=== PATIENT | male | born 1925 | race Caucasian/White ===

== ENCOUNTER 2016-08-22 11:07 | Inpatient (IN) ==
[2016-08-22] MEDS ORDERED: SODIUM CHLORIDE 0.9% 500 ML IV STA (11:39)
--- NOTE | 2016-08-22 11:42 | Emergency Department Note ---
Arrival - Arrival Chief Complaint: Weakness Stated Complaint: UTI ED Nursing Triage Note: C/o generalized weakness-onset yesterday. Son states that he has been being treated for a UTI for the past month and that PO meds aren't helping. Mode of Arrival: Wheelchair Limitations: No Limitations Source: Patient, Family, RN Notes Reviewed Time Seen by Provider: 08/22/16 11:25 - History of Present Illness HPI Narrative: Patient is an 89-year-old white male with a history of generalized weakness. The patient's been treated for the last month for UTI with Cipro. Patient has had some dysuria. Over the last 2 days the patient has had a progressive deterioration in his ability to function and perform his ADLs. According to the family they had to dress the patient this morning and this is usually not his status. His baseline is usually ambulating independently and living independently. Patient has not experienced any chills or fever. He has had some nausea and is not eating well. Onset (ago): day(s) (2) Allergies/Adverse Reactions: Allergies Allergy/AdvReac Type Severity Reaction Status Date / Time ciprofloxacin [From Cipro] Allergy Unknown/Unable Verified 08/22/16 11:19 to obtain Home Medications: Home Medications Medication Instructions Recorded Confirmed Type Carvedilol 12.5 mg PO BID 08/22/16 08/22/16 History Donepezil HCl 5 mg PO DAILY 08/22/16 08/22/16 History Doxazosin Mesylate 2 mg PO DAILY 08/22/16 08/22/16 History Meloxicam 15 mg PO DAILY 08/22/16 08/22/16 History Mirtazapine 15 mg PO BEDTIME 08/22/16 08/22/16 History Simvastatin 40 mg PO BEDTIME 08/22/16 08/22/16 History Tolterodine LA [Detrol LA] 4 mg PO DAILY 08/22/16 08/22/16 History Review of System - Review of System 12 point system: reviewed and no additional remarkable complaints except as stated - Review of System Constitutional: Absent: chills, fever Respiratory: Present: cough. Absent: respiratory distress, wheezing Cardiovascular: Absent: chest pain Gastrointestinal: Present: nausea. Absent: abdominal pain, vomiting Skin: Absent: rash Neurological: Present: weakness, abnormal gait. Absent: numbness, paresthesias , confusion Medical,Surgical,& Family Hx - Medical History Cardio: History of: CAD, Hypertension Endocrine: History of: Dyslipidemia Genitourinary: History of: Prostate Problems (prostate cancer) - Surgical History Cardiac Surgeries: Sugical HX of: Cardiac Surgery (CABG) - Social History Smoking Status: Never smoker Frequency of Alcohol Use: None Type of Drug Use: None Exam Vital Signs: Vital Signs Temperature 99.7 F H 08/22/16 12:04 Pulse Rate 61 08/22/16 12:04 Respiratory Rate 18 08/22/16 12:06 Blood Pressure 124/48 08/22/16 12:04 O2 Sat by Pulse Oximetry 96 08/22/16 11:13 GENERAL: This is a chronically and acutely ill-appearing white male in no apparent distress. VITAL SIGNS: Reviewed HEENT: Head is atraumatic and normocephalic. Pupils are equal round react to light. Extraocular movements are intact. Oropharynx is benign with slightly dry mucous membranes. NECK: Neck is soft and supple without tenderness. There are no masses. There is no lymphadenopathy. LUNGS: Lungs are clear to auscultation. Chest rises symmetrically. There is no chest wall tenderness. CV: Heart is regular rate and rhythm 2/6 systolic ejection murmur loudest at the left sternal border but also heard at the right sternal border. ABDOMEN: Abdomen is soft, nontender to palpation. There are no abdominal abnormal masses palpated. There is no organomegaly. Bowel sounds are present and active. SKIN: Skin is warm and dry. No rash. EXTREMITIES: Patient has full range of motion without tenderness. There is no pedal edema. NEUROLOGIC: Awake, alert, and oriented to person and situation. Cranial nerves II through XII are grossly intact. Motor is 5 over 5 in all extremities bilaterally. Deep tendon reflexes are 2+ and bilaterally equal. Course - Consultations Consultation #1: Discussed with hospitalist. Patient will be admitted to their service. Time: 13:54 Results - Labs CBC & BMP: 08/22/16 11:28 08/22/16 11:28 Lab Results: I have reviewed the patients labs Labs: Laboratory Tests 08/22/16 11:28 Iron 11 L TIBC 229 L % Saturation 4.8 L Ferritin 22.7 L - Diagnostic Findings Procedure: Chest x-ray: image reviewed by me (Old median sternotomy, no infiltrates, no pleural effusions.), CT: image reviewed by me (CT head: Cerebral atrophy, no acute intracranial lesions or hemorrhages.) Disposition Clinical Impression: Generalized weakness, UTI (urinary tract infection), Iron deficiency anemia Case discussed with: patient, patient's family Condition: Stable Time of Disposition: 13:54
[2016-08-22 11:59] LABS: Basophils % 0.1 % (0.0-0.8); Eosinophils % 0.2 % (0.00-10.9); Hematocrit 26.8 VOL% (42.0-52.0); Hemoglobin 8.8 GM/DL (14.0-18.0); Immature Granulocytes % 0.5 %; Immature Granulocytes Absolute 0.04 #; Lymphocytes # 0.6 10*3/uL (1.4-4.0); Lymphocytes % 7.8 % (21.2-54.2); Mean Corpuscular HGB Conc 32.8 GM/DL (32-36); Mean Corpuscular Hemoglobin 30 PG (27-34); Mean Corpuscular Volume 91.2 FL (87-102); Mean Platelet Volume 11.1 FL (9.6-12.0); Monocytes % 12.1 % (1.7-12.7); Neutrophils # 6.4 10*3/uL (1.4-7.4); Neutrophils % 79.3 % (38.7-73.9); Platelet Count 148 T/CUMM (130-400); Red Blood Count 2.94 MC/CUMM (3.8-5.5); Red Cell Distribution Width 13.8 % (9.3-17.3); White Blood Count 8.1 T/CUMM (4-12)
--- NOTE | 2016-08-22 12:15 | CT Report ---
CT head/brain wo con Indication: Generalized weakness Comparison: None Technique: Multiple axial tomographic images of the brain were obtained without the use of intravenous contrast. Findings: Midline structures are nondisplaced. Marked global volume loss present. No acute intracranial hemorrhage. Moderate periventricular and subcortical hypoattenuation noted which is nonspecific but consistent with chronic microvascular ischemic change. Demyelinating process and vasculitis less likely considerations. Old lacunar infarcts involving the right basal ganglia. Atherosclerotic calcifications demonstrated. The visualized paranasal sinuses and bilateral mastoid air cells are essentially clear. IMPRESSION: No acute intracranial abnormality demonstrated. Probable chronic microvascular ischemic change and volume loss. Old lacunar infarcts of right basal ganglia. The CT exam was performed using one or more of the following dose reduction techniques: Automated exposure control, adjustment of the mA and/or kV according to patient size, or use of iterative reconstruction technique. PROCEDURE INTERPRETED AT [facility] DEPARTMENT OF RADIOLOGY Final Report Signed by: Dr William Serra
[2016-08-22 12:22] LABS: Band Neutrophils 4 % (0-10); Lymphocytes 2 % (20-55); Segmented Neutrophils 84 % (50-85); Total Cells Counted 100
[2016-08-22 12:23] LABS: Hypochromasia Slight; Platelet Estimate Adequate
--- NOTE | 2016-08-22 12:23 | XRay Report ---
XR chest 1V portable Indication: Cough Comparison: Chest x-ray dated November 03, 2008 Technique: Single frontal view of the chest. Findings: Mild cardiomegaly status post sternotomy. Chronic change of the lungs without focal consolidation, pleural effusion, or pneumothorax. Visualized osseous and surrounding soft tissue structures appear grossly unchanged. IMPRESSION: Mild cardiomegaly without jerrod pulmonary edema. PROCEDURE INTERPRETED AT [facility] DEPARTMENT OF RADIOLOGY Final Report Signed by: Dr Willaim Serra
[2016-08-22 12:32] LABS: Albumin 2.6 G/DL (3.4-5.0); Bilirubin,Total 0.9 MG/DL (0.2-1.0); Calcium 8.1 MG/DL (8.5-10.1); Osmolality,Calculated 292.1 MOS/KG (273-304); Total Protein 5.3 G/DL (6.4-8.3)
[2016-08-22 12:59] LABS: % Iron Saturation 4.8 % (18-50); Ferritin 22.7 ng/ml (26-388)
[2016-08-22 13:44] LABS: Folate > 24.0 NG/ML (5.4-24.0); Vitamin B12 840 PG/ML (211-911)
[2016-08-22] MEDS ORDERED: SODIUM CHLORIDE 0.9% 1,000 ML IV STA (14:25)
[2016-08-22] MEDS ORDERED: LACTULOSE 20 GM/30 ML UDCUP PO PRN (14:46)
[2016-08-22] MEDS ORDERED: ONDANSETRON 4 MG/2 ML VIAL IV PRN (14:46)
[2016-08-22] MEDS ORDERED: ACETAMINOPHEN 325 MG TABLET PO PRN (14:46)
--- NOTE | 2016-08-22 14:59 | Hospitalist History & Physical ---
<Luis Logan - Last Filed: 08/22/16 15:18> Assessment and Plan - Time spent with patient Time spent with patient: Greater than 30 minutes (1) Iron deficiency anemia Status: Acute Assessment and plan: Iron 11 TIBC 229 ferritin 20.7. Start patient on supplemental iron. Type and cross for possible transfusion if necessary. IV hydration. Current Visit: Yes (2) UTI (urinary tract infection) Status: Acute Assessment and plan: Patient had recent UTI infection. Prescription for ciprofloxacin given per Dr. Newsome. Patient may have an allergy to ciprofloxacin. Will switch antibiotics and continue coverage once urinalysis results return confirming UTI. WBCs 8.1 Current Visit: Yes (3) Generalized weakness Status: Acute Current Visit: Yes (4) Hypertension Status: Acute Assessment and plan: Well-controlled on home meds. Continue home meds Current Visit: Yes History of Present Illness Chief complaint: Anemia, altered mental status History of present illness: Mr. Parisi is a 89 year old white male with a past medical history significant for hypertension, history of CVA, history of UTI, prostate cancer, quadruple bypass who presents to the ED today with complaints of altered mental status with onset last night. The patient is accompanied by his son who noted that the patient, who is quite active at baseline, started to deteriorate last night and apparently needed assistance and clothing himself this morning. Patient does have a recent history of UTI for which he was treated for with ciprofloxacin. He was on a 7 day regimen and still has 3 days left to complete. Patient's son notes that the patient started to behave differently on last night and seemed more confused this morning. Patient is followed by Dr. Newsome for primary care, Dr. Do for cardiology, and Dr. George for urology. Patient has no known allergies, however, this recent change in mentation is suspicious for an acquired allergy to fluoroquinolones. Patient denies any pain at this time. No headache, nausea vomiting, blood in sputum, hematemesis, melena. Urinalysis is pending. On admission, the patient's lab work is remarkable for H&H 8.8 and 26.8, BUN 35, creatinine 1.40, glucose 133, iron 11, TIBC 229, ferritin 22.7, B12 840, folate greater than 24.0. Case been discussed with Dr. Griffiths, ER physician, and Dr. Casey, admitting physician, and the patient will be admitted to the hospital medicine service for further evaluation and treatment. Medications have been reviewed and reconciled. Patient is a full code. Home Medications Medication Instructions Recorded Confirmed Type Carvedilol 12.5 mg PO BID 08/22/16 08/22/16 History Donepezil HCl 5 mg PO DAILY 08/22/16 08/22/16 History Doxazosin Mesylate 2 mg PO DAILY 08/22/16 08/22/16 History Meloxicam 15 mg PO DAILY 08/22/16 08/22/16 History Mirtazapine 15 mg PO BEDTIME 08/22/16 08/22/16 History Simvastatin 40 mg PO BEDTIME 08/22/16 08/22/16 History Tolterodine LA [Detrol LA] 4 mg PO DAILY 08/22/16 08/22/16 History Allergies Allergy/AdvReac Type Severity Reaction Status Date / Time ciprofloxacin [From Cipro] Allergy Unknown/Unable Verified 08/22/16 11:19 to obtain Medical,Surgical,& Family Hx - Medical History Cardio: History of: CAD, Hypertension Endocrine: History of: Dyslipidemia Genitourinary: History of: Prostate Problems (prostate cancer) - Surgical History Cardiac Surgeries: Sugical HX of: Cardiac Surgery (CABG) - Family History Family History: Reports;: Family Heart Disease, Family Hypertension - Social History Smoking Status: Never smoker Frequency of Alcohol Use: None Type of Drug Use: None Marital Status: Lives With:: Alone Functional capacity: independent ambulation - Constitutional Constitutional: Present: weakness. Absent: fever(s), headache(s) - EENT Eyes: Absent: blurry vision Ears: Absent: decreased hearing - Cardiovascular Cardiovascular: Present: dyspnea. Absent: chest pain at rest, edema - Respiratory Respiratory: Absent: cough, hemoptysis, pain on inspiration - Gastrointestinal Gastrointestinal: Absent: abdominal pain, diarrhea, melena, nausea - Genitourinary Genitourinary: Absent: difficulty urinating - Musculoskeletal Musculoskeletal: Absent: arthralgias, back pain, muscle weakness - Neurological Neurological: Present: confusion - Psychiatric Psychiatric: Absent: anxiety, depression - Endocrine Endocrine: Present: fatigue - Hematologic/Lymphatic Hematologic/Lymphatic: Present: easy bleeding, easy bruising Exam - Constitutional Vitals: Period Temp Pulse Resp BP Sys/Chisholm Pulse Ox Last 24 Hr 99.7 F-99.7 F 61-61 18-18 124-124/48-48 96 Exam: General appearance: normal weight, no acute distress - Head Head exam: Present: normocephalic, atraumatic - Eye Eye exam: Present: EOMI. Absent: conjunctival injection, nystagmus Pupils: Present: DEEPAK, normal accommodation - ENT ENT exam: Present: normal exam, normal external ear exam - Neck Neck exam: Present: normal inspection. Absent: lymphadenopathy, tenderness, thyromegaly - Respiratory Respiratory exam: Present: clear to auscultation bilaterally. Absent: rales, rhonchi, wheezes - Cardiovascular Cardiovascular exam: Present: regular rate and rhythm. Absent: carotid bruit, gallop, rubs - GI/Abdominal GI/Abdominal exam: Present: normal bowel sounds. Absent: ascites, distended, mass - Extremities Exam Extremities exam: Present: normal inspection, normal capillary refill. Absent: edema - Back Exam Back exam: Absent: CVA tenderness (L), CVA tenderness (R) - Neurological Exam Neurological exam: Present: alert, oriented X3, cranial nerves II through XII intact, reflexes appropriate - Psychiatric Psychiatric exam: Present: normal affect, normal mood - Skin Skin exam: Present: normal color, warm, dry Results - Labs CBC & BMP: 08/22/16 11:28 08/22/16 11:28 Lab Results: I have reviewed the past 24 hour labs - EKG EKG results: interpreted by ERMD - Diagnostic Findings Procedure: Chest x-ray: image reviewed by me, report reviewed by me <Shiva Casey - Last Filed: 08/22/16 16:14> Assessment and Plan - Time spent with patient Time spent with patient: Greater than 30 minutes (1) Acute encephalopathy Status: Acute Assessment and plan: Addendum: I reviewed pt's lab results today. I reviewed pt's CXR and CT head today. I discussed with pt's children, our PA, and staff antisubmarine officer in regarding pt's clinical status today. I saw and examined pt in his room today. I agree with history, physical,assessment, and plan listed as above by our PA, Kailyn Doreen. In addition, AMS could be due to side effect from PO cipro (pt took his 7th day cipro today) vs UTI. Will do UC BC. IV rocephin 1g for UTI. May need cath to get urine sample. Consult ID in am. Current Visit: Yes (2) Generalized weakness Status: Acute Assessment and plan: Monitor. Consult PT in am. Current Visit: Yes (3) UTI (urinary tract infection) Status: Acute Assessment and plan: Change to IV rocephin. Consult ID in am. Do bc and uc. Current Visit: Yes (4) Iron deficiency anemia Status: Acute Current Visit: Yes (5) Hypertension Status: Acute Current Visit: Yes Exam - Constitutional Vitals: Period Temp Pulse Resp BP Sys/Chisholm Pulse Ox Last 24 Hr 99.7 F-99.7 F 50-61 17-19 114-131/46-58 96-99 Results - Labs CBC & BMP: 08/22/16 11:28 08/22/16 11:28
[2016-08-22 16:03] LABS: Risk Ratio 1.81; VLDL CHOLESTEROL 7.2 MG/DL
[2016-08-22] MEDS: SODIUM CHLORIDE 0.9% 1,000 ML IV SCH (16:45)
[2016-08-22] MEDS ORDERED: IRON SUCROSE 200 MG in SODIUM CHLORIDE 0.9% 100 ML IV ONE (17:00)
[2016-08-22] MEDS ORDERED: cefTRIAXone 1,000 MG in SODIUM CHLORIDE 0.9% 100 ML IV SCH (18:00)
[2016-08-22 21:28] LABS: Apearance,Urine CLOUDY (Clear); Bilirubin,Urine Negative (Negative); Blood, Urine Large mg/dL (Negative); Glucose,Urine (UA) Negative (Negative); Ketones,Urine Negative (Negative); Mucus,Urine Occasional /LPF (Occasional); Nitrite,Urine Negative (Negative); Protein,Urine 100 MG/DL; RBC,Urine 632 /HPF (0-4); Urine Color Yellow (Yellow); Urine Specific Gravity 1.014 (1.001-1.035); Urine Urobilinogen < 2.0 EU/DL (0.2-1.0); WBC,Urine 192 /HPF (0-6)
[2016-08-22] MEDS: MIRTAZAPINE 15 MG TABLET PO SCH (22:15)
[2016-08-22] MEDS: SIMVASTATIN 40 MG TABLET PO SCH (22:15)
[2016-08-22] MEDS: CARVEDILOL 12.5 MG TABLET PO SCH (22:15)
[2016-08-22] MEDS: cefTRIAXone 1,000 MG in SODIUM CHLORIDE 0.9% 100 ML IV SCH (23:22)
[2016-08-23] MEDS: SODIUM CHLORIDE 0.9% 1,000 ML IV SCH ×2 (04:53→20:48)
[2016-08-23 07:14] LABS: Calcium 7.8 MG/DL (8.5-10.1); Osmolality,Calculated 295.6 MOS/KG (273-304); Potassium 3.8 MMOL/L (3.5-5.1)
[2016-08-23 08:53] LABS: Basophils % 0.3 % (0.0-0.8); Eosinophils # 0.1 10*3/uL (0.0-0.87); Eosinophils % 1.4 % (0.00-10.9); Hematocrit 26.5 VOL% (42.0-52.0); Hemoglobin 8.6 GM/DL (14.0-18.0); Immature Granulocytes % 0.5 %; Immature Granulocytes Absolute 0.03 #; Lymphocytes # 0.8 10*3/uL (1.4-4.0); Lymphocytes % 12.7 % (21.2-54.2); Mean Corpuscular HGB Conc 32.5 GM/DL (32-36); Mean Corpuscular Hemoglobin 30 PG (27-34); Mean Corpuscular Volume 91.7 FL (87-102); Mean Platelet Volume 11.5 FL (9.6-12.0); Monocytes # 0.7 10*3/uL (0.11-0.8); Monocytes % 11.3 % (1.7-12.7); Neutrophils # 4.8 10*3/uL (1.4-7.4); Neutrophils % 73.8 % (38.7-73.9); Platelet Count 142 T/CUMM (130-400); Red Blood Count 2.89 MC/CUMM (3.8-5.5); Red Cell Distribution Width 13.8 % (9.3-17.3); White Blood Count 6.5 T/CUMM (4-12)
[2016-08-23 10:21] LABS: Burr Cells 1+; Hypochromasia 1+; Microcytosis Slight
[2016-08-23] MEDS: TOLTERODINE LA 4 MG CAPSULE PO SCH (10:36)
[2016-08-23] MEDS: DOCUSATE SODIUM 100 MG CAPSULE PO PRN (10:36)
[2016-08-23] MEDS: DOXAZOSIN 1 MG TABLET PO SCH (10:37)
[2016-08-23] MEDS: PANTOPRAZOLE 40 MG TABLET PO SCH (10:37)
[2016-08-23] MEDS: CARVEDILOL 12.5 MG TABLET PO SCH ×2 (10:37→22:01)
[2016-08-23] MEDS: DONEPEZIL 5 MG TABLET PO SCH (10:37)
--- NOTE | 2016-08-23 12:36 | Hospitalist Progress Note ---
Assessment and Plan (1) UTI (urinary tract infection) Status: Acute Assessment and plan: Continue rocephin F/u urine culture Current Visit: Yes (2) Hypertension Status: Acute Assessment and plan: Continue home medications Current Visit: Yes (3) Acute encephalopathy Status: Acute Assessment and plan: Most likely secondary to infection Better today Current Visit: Yes Hospitalist: Subjective Interval history: Overnight, patient's family reports confusion overnight. A little better this morning. Report good appetite. Exam - Constitutional Vitals: Period Temp Pulse Resp BP Sys/Chisholm Pulse Ox Last 24 Hr 98 F-99.2 F 49-100 16-20 102-183/46-90 93-100 General appearance: normal weight - Head Head exam: Present: normocephalic, atraumatic - Eye Eye exam: Present: EOMI Pupils: Present: DEEPAK - ENT ENT exam: Present: normal exam - Neck Neck exam: Present: normal inspection - Respiratory Respiratory exam: Present: clear to auscultation bilaterally. Absent: wheezes - Cardiovascular Cardiovascular exam: Present: regular rate and rhythm - GI/Abdominal GI/Abdominal exam: Present: normal bowel sounds, soft. Absent: tenderness, rebound - Extremities Exam Extremities exam: Present: normal inspection - Back Exam Back exam: Present: normal inspection - Neurological Exam Neurological exam: Present: alert, oriented X3 - Psychiatric Psychiatric exam: Present: normal affect, normal mood - Skin Skin exam: Present: warm, intact Results - Labs CBC & BMP: 08/23/16 06:03 08/23/16 06:03
[2016-08-23] MEDS: cefTRIAXone 1,000 MG in SODIUM CHLORIDE 0.9% 100 ML IV SCH (19:11)
[2016-08-23] MEDS: SIMVASTATIN 40 MG TABLET PO SCH (22:02)
[2016-08-23] MEDS: MIRTAZAPINE 15 MG TABLET PO SCH (22:02)
[2016-08-24 05:17] LABS: Basophils % 0.3 % (0.0-0.8); Eosinophils # 0.2 10*3/uL (0.0-0.87); Eosinophils % 3.1 % (0.00-10.9); Hematocrit 28.3 VOL% (42.0-52.0); Hemoglobin 9.1 GM/DL (14.0-18.0); Immature Granulocytes % 0.3 %; Immature Granulocytes Absolute 0.02 #; Lymphocytes # 0.9 10*3/uL (1.4-4.0); Lymphocytes % 14.7 % (21.2-54.2); Mean Corpuscular HGB Conc 32.2 GM/DL (32-36); Mean Corpuscular Hemoglobin 29 PG (27-34); Mean Corpuscular Volume 90.7 FL (87-102); Monocytes # 0.7 10*3/uL (0.11-0.8); Monocytes % 11.7 % (1.7-12.7); Neutrophils % 69.9 % (38.7-73.9); Platelet Count 167 T/CUMM (130-400); Red Blood Count 3.12 MC/CUMM (3.8-5.5); Red Cell Distribution Width 14.2 % (9.3-17.3); White Blood Count 5.8 T/CUMM (4-12)
[2016-08-24 05:43] LABS: Calcium 7.6 MG/DL (8.5-10.1); Magnesium 1.7 MG/DL (1.8-2.4); Potassium 3.8 MMOL/L (3.5-5.1)
[2016-08-24 06:00] LABS: Band Neutrophils 3 % (0-10); Eosinophils 2 % (0-10); Lymphocytes 16 % (20-55); Metamyelocytes 1 %; Segmented Neutrophils 69 % (50-85); Total Cells Counted 100
[2016-08-24 06:01] LABS: Platelet Estimate Adequate
[2016-08-24] MEDS: TOLTERODINE LA 4 MG CAPSULE PO SCH (09:49)
[2016-08-24] MEDS: DOXAZOSIN 1 MG TABLET PO SCH (09:50)
[2016-08-24] MEDS: DOCUSATE SODIUM 100 MG CAPSULE PO PRN (09:51)
[2016-08-24] MEDS: CARVEDILOL 12.5 MG TABLET PO SCH ×2 (09:52→21:03)
[2016-08-24] MEDS: PANTOPRAZOLE 40 MG TABLET PO SCH (09:53)
[2016-08-24] MEDS: DONEPEZIL 5 MG TABLET PO SCH (09:55)
[2016-08-24] MEDS ORDERED: traZODone 50 MG TABLET PO PRN (12:07)
--- NOTE | 2016-08-24 12:54 | Hospitalist Progress Note ---
Assessment and Plan (1) UTI (urinary tract infection) Status: Acute Assessment and plan: Continue rocephin Urine culture with no growth so far Current Visit: Yes (2) Hypertension Status: Acute Assessment and plan: Continue home medications Current Visit: Yes (3) Acute encephalopathy Status: Acute Assessment and plan: Most likely secondary to infection Better today Current Visit: Yes Hospitalist: Subjective Interval history: Per daughter, overnight patient was oriented but complained of back pain. Relieved with pain medications. Exam - Constitutional Vitals: Period Temp Pulse Resp BP Sys/Chisholm Pulse Ox Last 24 Hr 98.2 F-98.8 F 58-63 18-20 117-128/51-62 97-98 General appearance: normal weight - Head Head exam: Present: normocephalic, atraumatic - Eye Eye exam: Present: EOMI Pupils: Present: DEEPAK - ENT ENT exam: Present: normal exam - Neck Neck exam: Present: normal inspection - Respiratory Respiratory exam: Present: clear to auscultation bilaterally. Absent: rhonchi, wheezes - Cardiovascular Cardiovascular exam: Present: regular rate and rhythm - GI/Abdominal GI/Abdominal exam: Present: normal bowel sounds, soft. Absent: tenderness, rebound - Extremities Exam Extremities exam: Present: normal inspection - Back Exam Back exam: Present: normal inspection - Neurological Exam Neurological exam: Present: alert - Psychiatric Psychiatric exam: Present: normal affect, normal mood - Skin Skin exam: Present: warm, intact Results - Labs CBC & BMP: 08/24/16 05:06 08/24/16 05:06
[2016-08-24] MEDS: SODIUM CHLORIDE 0.9% 1,000 ML IV SCH ×2 (19:55→21:56)
[2016-08-24] MEDS: cefTRIAXone 1,000 MG in SODIUM CHLORIDE 0.9% 100 ML IV SCH (19:55)
--- NOTE | 2016-08-24 21:01 | ECHO Report ---
Domenico Parisi Exam Date: 08/23/2016 09:53 Referring Physician: Technologist: Indira Paul LRMATT Age: 89 Ht (in): 68 Wt (lb): 120 Gender: M Exam Location: [facility] Echo Indications: acute encephalopathy, weakness, UTI, anemia, HTN BP: 135 / 68 HR: 57 Rhythm: Sinus Technical Quality: Good IMPRESSIONS Left ventricular ejection fraction is estimated at 55-60 %. Mild concentric left ventricular hypertrophy with diastolic dysfunction. Mild RV enlargement Mild right atrial enlargement Moderately increased left atrial size. Mild mitral valve sclerosis. 2+ mitral valve regurgitation. Mild aortic valve sclerosis without stenosis. Trace to mild aortic valve regurgitation. [id number] tricuspid valve regurgitation. Tricuspid regurgitation velocities suggest a PAP of 47 mmHg. Mild pulmonary valve regurgitation. MEASUREMENTS (Male / Female) Normal Values 2D ECHO LV Diastolic Diameter PLAX 4.7 cm 4.2 - 5.9 / 3.9 - 5.3 cm LV Systolic Diameter PLAX 2.7 cm LV Fractional Shortening PLAX 42.2 % IVS Diastolic Thickness 1.1 cm 0.6 - 1.0 / 0.6 - 0.9 cm LVPW Diastolic Thickness 1.1 cm 0.6 - 1.0 / 0.6 - 0.9 cm RV Internal Dim ED PLAX 2.5 cm Aortic Root Diameter 3.0 cm LA Systolic Diameter LX 5.4 cm 3.0 - 4.0 / 2.7 - 3.8 cm DOPPLER TR Peak Velocity 305.0 cm/s TR Peak Gradient 37.2 mmHg FINDINGS Left Ventricle Mild concentric left ventricular hypertrophy with diastolic dysfunction. Left ventricular ejection fraction is estimated at 55-60 %. Right Ventricle Mild RV enlargement Right Atrium Mild right atrial enlargement Left Atrium Moderately increased left atrial size. Mitral Valve Mild mitral valve sclerosis. 2+ mitral valve regurgitation. Aortic Valve Mild aortic valve sclerosis without stenosis.trace to mild aortic valve regurgitation. Tricuspid Valve Morphologically normal tricuspid valve. [id number] tricuspid valve regurgitation. Tricuspid regurgitation velocities suggest a PAP of 47 mmHg. Pulmonic Valve Morphologically normal pulmonic valve. Mild pulmonary valve regurgitation. Pericardium No pericardial effusion. Aorta Normal size aortic root and proximal ascending aorta. Jaswinder Do MD (Electronically Signed) Final Date: 24 August 2016 21:00
[2016-08-24] MEDS: SIMVASTATIN 40 MG TABLET PO SCH (21:03)
[2016-08-24] MEDS: MIRTAZAPINE 15 MG TABLET PO SCH (21:03)
[2016-08-24] MEDS: DOXYCYCLINE HYCLATE 100 MG CAPSULE PO SCH (21:57)
[2016-08-25 05:04] LABS: Basophils % 0.5 % (0.0-0.8); Eosinophils # 0.2 10*3/uL (0.0-0.87); Eosinophils % 4.1 % (0.00-10.9); Hematocrit 24.7 VOL% (42.0-52.0); Hemoglobin 8.2 GM/DL (14.0-18.0); Immature Granulocytes % 0.2 %; Immature Granulocytes Absolute 0.01 #; Lymphocytes # 0.8 10*3/uL (1.4-4.0); Lymphocytes % 19.3 % (21.2-54.2); Mean Corpuscular HGB Conc 33.2 GM/DL (32-36); Mean Corpuscular Hemoglobin 30 PG (27-34); Mean Corpuscular Volume 90.8 FL (87-102); Mean Platelet Volume 11.2 FL (9.6-12.0); Monocytes # 0.6 10*3/uL (0.11-0.8); Neutrophils # 2.6 10*3/uL (1.4-7.4); Neutrophils % 60.9 % (38.7-73.9); Platelet Count 155 T/CUMM (130-400); Red Blood Count 2.72 MC/CUMM (3.8-5.5); White Blood Count 4.2 T/CUMM (4-12)
[2016-08-25 05:29] LABS: Calcium 7.5 MG/DL (8.5-10.1); Magnesium 1.7 MG/DL (1.8-2.4); Potassium 3.8 MMOL/L (3.5-5.1)
[2016-08-25 05:53] LABS: Hypochromasia 1+; Ovalocytes Slight; Platelet Estimate Normal
[2016-08-25 05:54] LABS: Burr Cells Slight; Microcytosis Slight
[2016-08-25] MEDS: DOXYCYCLINE HYCLATE 100 MG CAPSULE PO SCH (09:16)
[2016-08-25] MEDS: PANTOPRAZOLE 40 MG TABLET PO SCH (09:16)
[2016-08-25] MEDS: DONEPEZIL 5 MG TABLET PO SCH (09:16)
[2016-08-25] MEDS: DOCUSATE SODIUM 100 MG CAPSULE PO PRN (09:16)
[2016-08-25] MEDS: DOXAZOSIN 1 MG TABLET PO SCH (09:16)
[2016-08-25] MEDS: TOLTERODINE LA 4 MG CAPSULE PO SCH (09:16)
[2016-08-25] MEDS: CARVEDILOL 12.5 MG TABLET PO SCH ×2 (09:16→21:11)
[2016-08-25] MEDS ORDERED: MAGNESIUM SULF RIDER 4 GM in PREMIX 1 EACH IV PRN (11:20)
[2016-08-25] MEDS ORDERED: MAGNESIUM SULF RIDER 2 GM in PREMIX 1 EACH IV PRN (11:20)
--- NOTE | 2016-08-25 12:23 | Hospitalist Progress Note ---
Assessment and Plan (1) UTI (urinary tract infection) Status: Acute Assessment and plan: This is questionable Moderate leukocytes on UA but urine culture with no growth Family reports recurrent uti's for over a month being treated by his pcp The family is requesting further evaluation, consulting ID Current Visit: Yes (2) Hypertension Status: Acute Assessment and plan: Continue home medications Current Visit: Yes (3) Acute encephalopathy Status: Acute Assessment and plan: Initially thought to be due to uti, but urine culture with no growth CT head without acute process B12 ok Will check RPR Consulting neurology for assistance Patient is better than he was on admission, oriented to person and place today Believe that delirium due to is also complicating this picture Current Visit: Yes Hospitalist: Subjective Interval history: There is a different daughter in the patient's room today. She reports that the patient was alert yesterday, did not sleep much overnight. She reports that the patient is more confused this morning. The patient is asleep, but easily aroused. He is oriented to person, place and time is better (2016). The daughter reports that the patient is not close to being himself. She reports that the patient for along time has been occasionally hearing things, such as sirens or dogs fighting, that no one else hears. She also reports that he had an episode of acute confusion some time ago due to a uti. Consulted ID for assistance. Exam - Constitutional Vitals: Period Temp Pulse Resp BP Sys/Chisholm Pulse Ox Last 24 Hr 97.9 F-99.2 F 55-76 14-20 137-152/62-70 92-100 General appearance: normal weight - Head Head exam: Present: normocephalic, atraumatic - Eye Eye exam: Present: EOMI Pupils: Present: DEEPAK - ENT ENT exam: Present: normal exam - Neck Neck exam: Present: normal inspection - Respiratory Respiratory exam: Present: clear to auscultation bilaterally. Absent: rhonchi, wheezes - Cardiovascular Cardiovascular exam: Present: regular rate and rhythm - GI/Abdominal GI/Abdominal exam: Present: normal bowel sounds, soft. Absent: tenderness, rebound - Extremities Exam Extremities exam: Present: normal inspection - Back Exam Back exam: Present: normal inspection - Neurological Exam Neurological exam: Present: alert, oriented X3 - Psychiatric Psychiatric exam: Present: normal affect, normal mood - Skin Skin exam: Present: warm, intact Results - Labs CBC & BMP: 08/25/16 02:54 08/25/16 02:54
--- NOTE | 2016-08-25 13:56 | Infectious Disease Consult ---
Assessment and Plan (1) Recurrent UTI Status: Acute Assessment and plan: Patient has history of prostate cancer with radiation therapy and chemotherapy. Recurring UTIs may be related to his prostate issues. Currently no evidence of urinary tract infection. Recommendations: 1. Recommend Hiprex to try to decrease frequency of recurring urinary tract infections 2. Discontinue doxycycline Thank you very much for the consult. Call again as needed. Discussed with Dr. Stokes Discussed with patient's daughter at bedside Current Visit: Yes (2) Acute encephalopathy Status: Acute Assessment and plan: This would not be infectious as we have no evidence of infection during current admission. Could be other causes such as medication induced versus acute worsening of dementia. Current Visit: Yes (3) Hypertension Status: Acute Current Visit: Yes History of Present Illness Chief complaint: Recurrent urinary tract infections History of present illness: History obtained from patient's daughters patient is confused. Mr. Parisi is a 89 year old male who apparently has been having recurrent urinary tract infections for the past month according to his daughter. He recently has been on ciprofloxacin for over a week. The patient's diagnosis of UTIs are made when the home health nurse checks his urine and finds white blood cells. No report of symptoms in patients such as abdominal pain and there has been no fever. He was brought to hospital on this occasion because of confusion. Daughter was concerned that he may have been having a reaction to ciprofloxacin which she has been on. Home Medications Medication Instructions Recorded Confirmed Type Carvedilol 12.5 mg PO BID 08/22/16 08/22/16 History Donepezil HCl 5 mg PO PC SUPPER 08/22/16 08/22/16 History Doxazosin Mesylate 2 mg PO DAILY 08/22/16 08/22/16 History Meloxicam 15 mg PO DAILY 08/22/16 08/22/16 History Mirtazapine 15 mg PO BEDTIME 08/22/16 08/22/16 History Simvastatin 40 mg PO BEDTIME 08/22/16 08/22/16 History Tolterodine LA [Detrol LA] 4 mg PO DAILY 08/22/16 08/22/16 History Allergies Allergy/AdvReac Type Severity Reaction Status Date / Time ciprofloxacin [From Cipro] Allergy Unknown/Unable Verified 08/22/16 11:19 to obtain ROS unobtainable: due to mental status Medical,Surgical,& Family Hx - Medical History Cardio: History of: CAD, Hypertension HEENT: Comment Only: Ear Problem (HARD OF HEARING.) Endocrine: History of: Dyslipidemia Genitourinary: History of: Prostate Problems (prostate cancer) Musculoskeletal: History of: Back/Neck Problems (LOWER BACK.) Hematology: History of: Blood Transfusion Reaction, Bleeding Problems (BRUISES EASILY.) Other: History of: Cancer (PRPOSTATE.) - Surgical History Cardiac Surgeries: Sugical HX of: Cardiac Surgery (CABG) Thoracic Surgeries: Patient denies;: Organ Transplant - Family History Family History: Reports;: Family Cancer ([place] PROSTATE.), Family Heart Disease, Family Hypertension, Family Psychiatric Problems (PT. HAS HISTORY OF STROKE.), Family Stroke (HISTORY OF STROKE WITH PT.) - Social History Smoking Status: Never smoker Frequency of Alcohol Use: None Type of Drug Use: None Infectious Disease Exam H&P - Constitutional Vitals: Vital Signs Temp Pulse Resp BP Pulse Ox 97.9 F 76 20 144/67 100 08/25/16 12:00 08/25/16 12:00 08/25/16 12:00 08/25/16 12:00 08/25/16 12:00 Intake and Output 08/24/16 08/25/16 08/25/16 23:59 07:59 15:59 Intake Total 1240 / 1240 80 / 80 Balance 1240 / 1240 80 / 80 Intake: IV 1000 / 1000 Ns 1,000 ml @ 50 mls/hr 1000 / 1000 IV .Q20H YOCASTA Rx#: [id number] Oral 240 / 240 80 / 80 Other: Voiding Method Brief Urinal # Voids 4 2 # Bowel Movements 1 1 Exam: General: Patient appeared comfortable/nontoxic, he is deaf HEENT: Mucous membranes pink and moist, anicteric acyanotic, DEEPAK, no oral exudates Neck: Supple, no thyroid gland enlargement, no lymphadenopathy Respiratory system: Breath sounds vesicular, no crepitations or wheezes Cardiovascular: Normal S1 and S2, no murmurs appreciated Abdomen: Normal bowel sounds, soft nontender throughout, no organomegaly or mass Genitourinary: No suprapubic pain or bladder distention Extremities: no edema Skin: No rash Reports - Labs CBC & BMP: 08/25/16 02:54 08/25/16 02:54 Labs: Laboratory Results - last 24 hr 08/25/16 08/25/16 02:54 02:54 WBC 4.2 RBC 2.72 L Hgb 8.2 L Hct 24.7 L MCV 90.8 MCH 30 MCHC 33.2 RDW 14.0 Plt Count 155 MPV 11.2 Neut % (Auto) 60.9 Lymph % (Auto) 19.3 L Brooks % (Auto) 15.0 H Eos % (Auto) 4.1 Baso % (Auto) 0.5 Neut # (Auto) 2.6 Lymph # (Auto) 0.8 L Brooks # (Auto) 0.6 Eos # (Auto) 0.2 Baso # (Auto) 0.0 Immature Gran % 0.2 Nucleated RBC % 0.0 Immature Gran # 0.01 Nucleated RBCs # 0.00 Platelet Estimate Normal Hypochromasia 1+ Microcytosis Slight Ovalocytes [employer] Cells Slight Morphology Comment Sodium 143 Potassium 3.8 Chloride 112 H Carbon Dioxide 21 Anion Gap 13.8 BUN 23 H Creatinine 1.20 GFR Calculation 50 BUN/Creatinine Ratio 19.00 Glucose 101 Calculated Osmolality 288.0 Calcium 7.5 L Magnesium 1.7 L - Reports Microbiology: Microbiology 08/22/16 20:40 Urine Culture - Final Urine,Catheterized No Growth at 48 hours. There was pyuria on urinalysis. Blood cultures negative.
--- NOTE | 2016-08-25 15:24 | Neurology Consult Note ---
History of Present Illness History of present illness: 89 years old right-handed white gentleman who is admitted to the hospital with acute onset of confusion, disorientation, balance difficulty, weakness. Family reported that he was in his usual state of health up until . On actually he used a lot more and ibrahim hog and was doing fine. Thursday he developed all the above-mentioned symptoms. He has some memory difficulties and he is on Aricept. He has a chronic UTI and was taking Macrobid at home on a regular basis. At the present time he is moving all 4 extremities and his speech is fluent. CT of the head is unremarkable Home Medications Medication Instructions Recorded Confirmed Type Carvedilol 12.5 mg PO BID 08/22/16 08/22/16 History Donepezil HCl 5 mg PO PC SUPPER 08/22/16 08/22/16 History Doxazosin Mesylate 2 mg PO DAILY 08/22/16 08/22/16 History Meloxicam 15 mg PO DAILY 08/22/16 08/22/16 History Mirtazapine 15 mg PO BEDTIME 08/22/16 08/22/16 History Simvastatin 40 mg PO BEDTIME 08/22/16 08/22/16 History Tolterodine LA [Detrol LA] 4 mg PO DAILY 08/22/16 08/22/16 History Allergies Allergy/AdvReac Type Severity Reaction Status Date / Time ciprofloxacin [From Cipro] Allergy Unknown/Unable Verified 08/22/16 11:19 to obtain 12 point system: reviewed and no additional remarkable complaints except as stated Medical,Surgical,& Family Hx - Medical History Cardio: History of: CAD, Hypertension HEENT: Comment Only: Ear Problem (HARD OF HEARING.) Endocrine: History of: Dyslipidemia Genitourinary: History of: Prostate Problems (prostate cancer) Musculoskeletal: History of: Back/Neck Problems (LOWER BACK.) Hematology: History of: Blood Transfusion Reaction, Bleeding Problems (BRUISES EASILY.) Other: History of: Cancer (PRPOSTATE.) - Surgical History Cardiac Surgeries: Sugical HX of: Cardiac Surgery (CABG) Thoracic Surgeries: Patient denies;: Organ Transplant - Family History Family History: Reports;: Family Cancer ([place] PROSTATE.), Family Heart Disease, Family Hypertension, Family Psychiatric Problems (PT. HAS HISTORY OF STROKE.), Family Stroke (HISTORY OF STROKE WITH PT.) - Social History Smoking Status: Never smoker Frequency of Alcohol Use: None Type of Drug Use: None Exam - Constitutional Vitals: Period Temp Pulse Resp BP Sys/Chisholm Pulse Ox Last 24 Hr 97.9 F-99.2 F 55-76 14-20 137-152/62-70 92-100 Exam: GENERAL: Patient is in no acute distress. NECK: Neck is supple. There is no JVD. No carotid bruits present. No thyroid masses. CVS: First and second heart sounds are normal. There is no S3 present. Regular rate and rhythm. RESPIRATORY: Lungs are clear to auscultation without any rales or rhonchi. ABDOMEN: Soft and non-tender. Bowel sounds are present. There is no hepatosplenomegaly. EXT: There is no palpable edema. Peripheral pulses are present. Skin: No rashes Central Nervous system: General: Alert, awake and Oriented x 1 Speech: Fluent Comprehension: Fair Facial expressions: Normal Cranial Nerves: CN1/Olfactory: Normal CN II/ Optic: Normal, Visual Reyes unreliable CN III, and : DEEPAK & EOMI CN V: Normal & intact CN VII: face is symmetric CNVIII: Normal CN XI/X/XI/XII: Intact and Normal Motor: Bulk and Tone is normal. Strength in the right4/5 Strength in the left 4/5 Sensory: Grossly intact for all the modalities of PP, LT and temp sense Reflexes: 1+ and symmetrical Cerebellar function: Normal finger to nose and heel to white testing. Toes: Equivocal Gait: Not tested at this time Results - Labs CBC & BMP: 08/25/16 02:54 08/25/16 02:54 Assessment and Plan (1) Encephalopathy Status: Acute Assessment and plan: Differential diagnoses included stroke, infectious etiology, dementia with decompensation and psychosis etc. MRI of the brain without contrast Repeat UA and UCS Aspirin a day Consult PT and OT Thank you for the consult Current Visit: Yes
[2016-08-25 15:52] LABS: Apearance,Urine Slightly Hazy (Clear); Bilirubin,Urine Negative (Negative); Blood, Urine Large mg/dL (Negative); Glucose,Urine (UA) Negative (Negative); Ketones,Urine Negative (Negative); Mucus,Urine Occasional /LPF (Occasional); Nitrite,Urine Negative (Negative); Protein,Urine 30 MG/DL; RBC,Urine 252 /HPF (0-4); Squamous Epithelial Cell,Urine Occasional /HPF (0-10); Urine Color Yellow (Yellow); Urine Specific Gravity 1.011 (1.001-1.035); Urine Urobilinogen < 2.0 EU/DL (0.2-1.0); WBC,Urine 33 /HPF (0-6)
--- NOTE | 2016-08-25 17:42 | Magnetic Resonance Report ---
Exam: MR head/brain wo con Date: 08/25/2016 3:16 PM Comparison: 05/12/2005 Indication: Confusion Technical: 1.5 Zandra magnet Axial T1 pre-and ADC, DWI, FLAIR, gradient echo and FSE T2 Sagittal T1 precontrast, FLAIR Coronal FSE T2 Contrast:0 cc Dotarem Findings: Exam reveals no acute ADC/ diffusion imaging abnormality. The brainstem reveals no obvious ischemic change or acute infarction. The cerebellum exhibit atrophic signal characteristics. The cerebral hemispheres exhibit abnormal signal characteristics. There is an old infarction in the right centrum semiovale with underlying encephalomalacia change. Small vessel changes are also present bilaterally. The corpus callosum is demonstrated with thinning with enlargement of ventricles and component of cerebral cortical atrophy. The seventh and eighth cranial nerves and cerebral pontine angles are intact. The pituitary gland, infundibulum and optic chiasm are intact. The paranasal sinuses exhibit normal signal characteristics. The mastoid sinuses are unremarkable. The globes and intra-and extraconal spaces are unremarkable. Impression: 1. 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 2. Small vessel ischemic changes 3. No acute hemorrhage infarction or mass effect PROCEDURE INTERPRETED AT [facility] DEPARTMENT OF RADIOLOGY Final Report Signed by: Dr. Shimon Pearl
[2016-08-25] MEDS: METHENAMINE HIPPURATE 1 GM TABLET PO SCH (21:10)
[2016-08-25] MEDS: SIMVASTATIN 40 MG TABLET PO SCH (21:10)
[2016-08-25] MEDS: MIRTAZAPINE 15 MG TABLET PO SCH (21:11)
[2016-08-26 05:25] LABS: Basophils % 0.4 % (0.0-0.8); Eosinophils # 0.2 10*3/uL (0.0-0.87); Eosinophils % 3.8 % (0.00-10.9); Hematocrit 24.7 VOL% (42.0-52.0); Immature Granulocytes % 0.2 %; Immature Granulocytes Absolute 0.01 #; Lymphocytes % 21.2 % (21.2-54.2); Mean Corpuscular HGB Conc 32.4 GM/DL (32-36); Mean Corpuscular Hemoglobin 29 PG (27-34); Mean Corpuscular Volume 89.5 FL (87-102); Mean Platelet Volume 11.2 FL (9.6-12.0); Monocytes # 0.7 10*3/uL (0.11-0.8); Monocytes % 15.7 % (1.7-12.7); Neutrophils # 2.8 10*3/uL (1.4-7.4); Neutrophils % 58.7 % (38.7-73.9); Platelet Count 163 T/CUMM (130-400); Red Blood Count 2.76 MC/CUMM (3.8-5.5); Red Cell Distribution Width 14.1 % (9.3-17.3); White Blood Count 4.7 T/CUMM (4-12)
[2016-08-26 05:55] LABS: Band Neutrophils 1 % (0-10); Eosinophils 4 % (0-10); Hypochromasia 1+; Lymphocytes 13 % (20-55); Platelet Estimate Adequate; Segmented Neutrophils 68 % (50-85); Total Cells Counted 100
[2016-08-26 05:56] LABS: Microcytosis 1+
[2016-08-26 05:57] LABS: Burr Cells Slight
[2016-08-26 05:58] LABS: Calcium 7.6 MG/DL (8.5-10.1); Magnesium 2.1 MG/DL (1.8-2.4); Potassium 4.2 MMOL/L (3.5-5.1)
[2016-08-26] MEDS: TOLTERODINE LA 4 MG CAPSULE PO SCH (08:26)
[2016-08-26] MEDS: CARVEDILOL 12.5 MG TABLET PO SCH (08:26)
[2016-08-26] MEDS: DOXAZOSIN 1 MG TABLET PO SCH (08:26)
[2016-08-26] MEDS: PANTOPRAZOLE 40 MG TABLET PO SCH (08:26)
[2016-08-26] MEDS: DONEPEZIL 5 MG TABLET PO SCH (08:26)
[2016-08-26] MEDS: METHENAMINE HIPPURATE 1 GM TABLET PO SCH (08:26)
[2016-08-26] MEDS ORDERED: ASPIRIN EC 81 MG TABLET PO SCH (09:00)
--- NOTE | 2016-08-26 12:28 | Hospitalist Progress Note ---
Assessment and Plan (1) UTI (urinary tract infection) Status: Chronic Assessment and plan: This is questionable Moderate leukocytes on UA but urine culture with no growth Family reports recurrent uti's for over a month being treated by his pcp ID evaluated, antibiotics discontinued Started on methenamine hippurate to help with history of chronic uti Current Visit: Yes (2) Hypertension Status: Chronic Assessment and plan: Continue home medications Current Visit: Yes (3) Acute encephalopathy Status: Acute Assessment and plan: Initially thought to be due to uti, but urine culture with no growth, repeat urine culture with same Procalcitonin was ordered on admission, will follow-up CT head without acute process B12 and RPR ok Neurology consulted, MRI ordered MRI without acute process With reports of increased bowel movements, will order stool culture and c.diff With report of tick seen on patient, might have to consider a lumbar puncture for further evaluation checking ammonia, vit d Believe that delirium due to ing is also complicating this picture Current Visit: Yes Hospitalist: Subjective Interval history: Per patient's daughter, patient still with some intermittent confusion especially overnight. Per staff yesterday afternoon he was awake and alert. Oriented to person only this morning. Today family reports concern for tick born infection. They report that patient works outside a great deal and recently found a tick crawling on his hand. They also report 4-6 bowel movements per day for the last several days. Exam - Constitutional Vitals: Period Temp Pulse Resp BP Sys/Chisholm Pulse Ox Last 24 Hr 98.1 F-99.6 F 53-62 16-20 96-143/45-67 94-98 General appearance: normal weight - Head Head exam: Present: normocephalic, atraumatic - Eye Eye exam: Present: EOMI Pupils: Present: DEEPAK - ENT ENT exam: Present: normal exam - Neck Neck exam: Present: normal inspection - Respiratory Respiratory exam: Present: clear to auscultation bilaterally - Cardiovascular Cardiovascular exam: Present: regular rate and rhythm - GI/Abdominal GI/Abdominal exam: Present: normal bowel sounds - Extremities Exam Extremities exam: Present: normal inspection - Back Exam Back exam: Present: normal inspection - Neurological Exam Neurological exam: Present: alert - Psychiatric Psychiatric exam: Present: normal affect, normal mood - Skin Skin exam: Present: warm, intact Results - Labs CBC & BMP: 08/26/16 04:41 08/26/16 04:40
[2016-08-26 17:11] VITALS: BP 127/77
--- NOTE | 2016-08-26 17:45 | Neurology Progress Note ---
Neurology - PN : Subjective Interval history: Patient seems to be doing okay. MRI of the brain revealed old infarction involving the right lower basal ganglia and thalamic junction and centrum semiovale region. No new stroke seen. UA shows WBC of 33. Cultures are negative. He seems to be doing much better overall. I am concerned about possible underlying dementia Exam (Progress Note) - Constitutional Vitals: Period Temp Pulse Resp BP Sys/Chisholm Pulse Ox Last 24 Hr 98.1 F-99.6 F 53-76 16-20 96-143/45-77 94-98 Exam: GENERAL: Patient is in no acute distress. NECK: Neck is supple. There is no JVD. No carotid bruits present. No thyroid masses. CVS: First and second heart sounds are normal. There is no S3 present. Regular rate and rhythm. RESPIRATORY: Lungs are clear to auscultation without any rales or rhonchi. ABDOMEN: Soft and non-tender. Bowel sounds are present. There is no hepatosplenomegaly. EXT: There is no palpable edema. Peripheral pulses are present. Skin: No rashes Central Nervous system: General: Alert, awake and Oriented x 1 Speech: Fluent Comprehension: Fair Facial expressions: Normal Cranial Nerves: CN1/Olfactory: Normal CN II/ Optic: Normal, Visual Reyes unreliable CN III, and : DEEPAK & EOMI CN V: Normal & intact CN VII: face is symmetric CNVIII: Normal CN XI/X/XI/XII: Intact and Normal Motor: Bulk and Tone is normal. Strength in the right4/5 Strength in the left 4/5 Sensory: Grossly intact for all the modalities of PP, LT and temp sense Reflexes: 1+ and symmetrical Cerebellar function: Normal finger to nose and heel to white testing. Toes: Equivocal Gait: Not tested at this time Results - Labs CBC & BMP: 08/26/16 04:41 08/26/16 04:40 Assessment and Plan (1) Encephalopathy Status: Acute Assessment and plan: Doing better. Recommended TMR placement Sign off please call as needed Current Visit: Yes
--- NOTE | 2016-09-22 14:58 | Discharge Summary ---
Hospital Course - Hospital Course Hospital Course: Mr. Parisi is a 89 year old white male with a past medical history significant for hypertension, history of CVA, history of UTI, prostate cancer, quadruple bypass who presents to the ED today with complaints of altered mental status with onset last night. The patient is accompanied by his son who noted that the patient, who is quite active at baseline, started to deteriorate last night and apparently needed assistance and clothing himself this morning. Patient does have a recent history of UTI for which he was treated for with ciprofloxacin. He was on a 7 day regimen and still has 3 days left to complete. Patient's son notes that the patient started to behave differently on last night and seemed more confused this morning. Patient is followed by Dr. Newsome for primary care, Dr. Do for cardiology, and Dr. George for urology. Patient has no known allergies, however, this recent change in mentation is suspicious for an acquired allergy to fluoroquinolones. Patient denies any pain at this time. No headache, nausea vomiting, blood in sputum, hematemesis, melena. Urinalysis is pending. On admission, the patient's lab work is remarkable for H&H 8.8 and 26.8, BUN 35, creatinine 1.40, glucose 133, iron 11, TIBC 229, ferritin 22.7, B12 840, folate greater than 24.0. Patient was admitted to the hospitalist service for further care. He was noted to have a urinary tract infection, started on rocephin. Patient with mild improvement of his ams. Remaining work-up for ams was negative, including mri which did show an old infarction but no acute process. ID was consulted due to history of recurrent uti per family. His urine culture this admission with no growth. Antibiotics were discontinued started on hiprix to help with chronic uti. Patient remained with some intermittent confusion, mostly at night. Neurology was consulted, felt that this was possibly related to underlying dementia. Recommended rehab placement. The family was unhappy with this and took the patient against medical advice. This occurred at night and I was not present. Diagnosis - Discharge Diagnosis (1) UTI (urinary tract infection) Status: Chronic (2) Hypertension Status: Chronic (3) Acute encephalopathy Status: Acute Discharge Plan - Discharge Data Disposition: Left Against Medical Advice - Discharge Medications No Action Donepezil HCl 5 mg PO PC SUPPER Doxazosin Mesylate 2 mg PO DAILY Simvastatin 40 mg PO BEDTIME Tolterodine LA [Detrol LA] 4 mg PO DAILY Carvedilol 12.5 mg PO BID Mirtazapine 15 mg PO BEDTIME Meloxicam 15 mg PO DAILY - Follow Up or Referral - Forms/Instructions DS: Provider Date of admission: 08/22/16 14:44 Primary care physician: Devante Newsome MD Attending physician on admission: Shiva Casey MD Consults: 08/25/16 07:44 Consult to Occupational Therapy [CONS] Routine Reason for Occupational Therapy: Evaluate and Treat Consult to Physical Therapy [CONS] Routine Reason for Physical Therapy: Evaluate and Treat 08/25/16 09:40 Consult to Physician [CONS] Routine Comment: recurrent uti's, urine cx neg here Consulting Provider: Jie Avelar 08/25/16 11:02 Consult to Physician [CONS] Routine Comment: altered mental status Consulting Provider: Ravinder Mena Discharging clinician: Lamberto Stokes MD
== END 2016-08-26 18:15 | disposition home or self-care (01) | DRG 71 ==
LOC: N.ED 11:07 → SUATTDRO 14:44 → N.EDINP 14:44 → N.2E 15:41
PROVIDERS: ADMIT Internal Medicine; ATTEND Internal Medicine